=== PATIENT | female | born 1990 | race Caucasian/White ===

== ENCOUNTER 2023-11-01 10:22 | Outpatient (CLI) | payer OTHER, SELFPAY ==
[2023-11-03 19:48] LABS: Progesterone 1.2 ng/mL
== END 2023-11-01 10:23 | disposition home or self-care (01) ==
LOC: ANHLAB 10:25
PROVIDERS: Visit Provider Obstetrics & Gynecology
DX: N92.6 Irregular menstruation, unspecified (principal)
CPT/HCPCS: 36415; 84144

== ENCOUNTER 2024-03-03 12:03 | Outpatient (CLI) | payer OTHER, SELFPAY ==
--- NOTE | ~2024-03-03 | XR_ITS ---
EXAMINATION: XR hysterosalpingogram DATE: 03/03/2024 13:33 INDICATION: There is redemonstration, unspecified. TECHNIQUE: Fluoroscopy was performed by the radiologist during contrast infusion into the endometrial cavity of the uterus by the primary physician. Fluoroscopy exposure time was 0.5 minutes. The total number of images was . FINDINGS: The intrauterine cavity is normal in morphology. The left fallopian tube is normal. There i s normal free intraperitoneal spillage of contrast on the left. There is incomplete opacification of right fallopian tube. IMPRESSION: 1. Occluded right fallopian tube. 2. Patent left fallopian tube.. Reviewed, dictated and finalized at location A.
[2024-03-03 11:59] LABS: Beta HCG Quantitative < 2.39 mIU/ML
== END 2024-03-03 12:04 | disposition home or self-care (01) ==
PROVIDERS: Visit Provider Obstetrics & Gynecology
DX: N92.6 Irregular menstruation, unspecified (principal)
CPT/HCPCS: 36415; 58340; 74740; 84702; Q9966